=== PATIENT | male | born 1945 | race Caucasian/White ===

== ENCOUNTER → 2016-04-25 | Outpatient (CLI) | payer MEDICARE ==
[~2016-04-25] MED LIST: FISH OIL1000 MG PO; LISINOPRIL 10MG10 MG NG; LORTAB 500 MG-71 TAB PO; METFORMIN500 MG PO; PRAVASTATIN 20M20 MG PO
--- NOTE | 2016-04-26 13:07 | RADIOLOGY REPORT PS360 ---
MRI-L-SPINE W/O, MRI-3D RENDERING/MYELOGRAM ORDERING PHYSICIAN : Bob Corrigan MD PATIENT AGE: 70 years GENDER: Male INDICATION: LUMBAGO WITH SCIATICA, LEFT SIDE Low back pain radiates down posterior aspect of legs. The technologist states a right-sided. Right leg greater pain since fall one month. Supplied history states left-sided pain TECHNIQUE: Sagittal STIR, T1, T2, axial T1 and T2. On 1.5T Siemens wide bore MRI. 3-D MR myelogram image set obtained & performed on MRI workstation. Additional sagittal thin section T2 weighted dataset obtained from this latter acquisition as well (---76 CPT) COMPARISON: Plain films lumbar spine 06/24/2013.. Also. CT abdomen reconstructions of spine 03/26/2015 FINDINGS Transitional vertebra lumbosacral junction does indicated at L6 for this study- partially sacralized L6.. This is important to note prior to any intervention or procedure, in order to verify consistent numbering of vertebral bodies. L1 is also somewhat transitional character with small rudimentary transitional transverse processes I do not have a chest film to verify this is L1 Designated L6/S1. Disc spaces well-maintained. Moderate facet hypertrophy particularly for this level Designated L5/L6..... 4 mm grade 1 listhesis at this level (this anterolisthesis actually at L5/6 level & not at L4/5 level as described on previous plain film lumbar region) This appears to be due to the degenerative facet changes with no pars defect evident. Although disc height is fairly well-maintained there is a diffuse disc bulge. However it is mainly the prominent facet hypertrophy, ligament flavum hypertrophy and listhesis which together with the disc bulge yields a pronounced and fairly severe central canal stenosis. Bilateral foraminal and recess encroachment is evident bilaterally but most pronounced & severe at entry of left foramen. Designated L4/5: Diffuse circumferential disc bulge is slightly more evident rightward.... Prominent bilateral facet hypertrophy. Features combine to yield moderate central canal stenosis. & Moderate bilateral foraminal encroachment At the L3/4. Mild diffuse disc bulge. Mild facet arthropathy, hypertrophy. Mild to moderate foraminal encroachment bilateral. L2/3. Disc intact. L1/2. Borderline disc space narrowing. Disc intact T 12/L1. Disc intact. 3-D MR myelogram image set demonstrates the moderately pronounced spinal stenosis at desiccated L5/L6 and to a slightly lesser L4/5 IMPRESSION: Pronounced Spinal stenosis L 5/6, and less pronounced at L4/5----- 1. Transitional vertebra at lumbosacral junction labeled L6. This is important to note prior to any intervention or procedure to verify consistent numbering of vertebral bodies. ( On also note that this is different vertebral numbering system than was reported on previous plain films from our facility) 2. . Designated L5/L6: Fairly Severe Central Canal Stenosis. Exuberant, prominent facet arthropathy bilaterally along w/ ligament flavum hypertrophy. Grade 1 degenerative listhesis of L5 on L6. Mild diffuse disc bulge. The combination these features yields fairly severe central canal stenosis along with the the prominent bilateral foraminal encroachment- most severe at left foramen. . 3. Designated L4/L5:. Mainly the Exuberant posterior element hypertrophy along with disc bulge yields moderately pronounced central canal stenosis.. (Slight Less pronounced than L5/L6 central stenosis ) . Also Generous bilateral foraminal encroachment slightly more pronounced to the right.. 4.... L3/4.: Mild. Facet hypertrophy with Mild disc bulge to the right-. Overall borderline central canal stenosis.
== END ==
LOC: RAD 08:45
DX: M54.41 Lumbago with sciatica, right side (principal); M54.42 Lumbago with sciatica, left side

== ENCOUNTER 2017-03-16 13:46 | Day surgery (SDC) | payer MEDICARE ==
--- NOTE | 2017-03-16 15:06 | Operative Note ---
Colonoscopy ([facility]) Procedure date: 03/16/17 Date of : 49 Procedure:Colonoscopy Colonoscopy with cold snare polypectomy Indications: Mr. Crawley is a 71-year-old gentleman who is here for initial screening colonoscopy. He reports no abdominal pain, weight loss, change in his bowel habits or rectal bleeding. He reports no family history of colon cancer. Performing Provider: Volodymyr Granda MD Referrring Provider: Humza Sandy M.D. Sedation: MAC sedation Procedure: Prior to the procedure, a history and physical exam was performed, and patient medications and allergies were reviewed. The risks and benefits of the procedure and the sedation options and risks were discussed with the patient. All questions were answered and informed consent was obtained. Patient identification and proposed procedure were verified by the physician and the nurse. The patient was placed in a left lateral decubitus position. Throughout the procedure, the patient's blood pressure, pulse, and oxygen saturations were monitored continuously. Findings: On digital rectal examination there was normal rectal tone. There were no external hemorrhoids. The prostate was 2-3+, smooth, soft, symmetric without nodules. The colonoscope was introduced through the anal canal to the rectum and advanced to the cecum. The ileocecal valve and appendiceal orifice were identified. The scope was advanced a short distance into the ileum which appeared grossly normal. The scope was then withdrawn into the colon. There were 2 colon polyps identified in the ascending 1 and sigmoid 1. These ranged in size from 5-6 mm and were all removed via cold snare polypectomy. There were scattered diverticuli throughout the descending and sigmoid colon (LEFT colon). The rectum itself was normal. Upon retroflexion within the rectum there were grade 1 internal hemorrhoids. Impressions: 1. Diminutive colonic polyps 2 2. Left-sided diverticulosis 3. Grade 1 internal hemorrhoids Recommendations: I will follow up the polyp pathology and recommend repeat colonoscopy again in 5 -10 years based upon the polyp histology. I would encourage fiber supplementation on a long-term daily maintenance basis. Complications: None EBL (ml): 0 at 1506
[2017-03-16 15:39] VITALS: BP 119/70
== END 2017-03-16 15:38 | disposition home or self-care (01) ==
LOC: SDC 13:46
PROVIDERS: Internal Medicine Gastroenterology
PROC: 0DBN8ZX Excision of Sigmoid Colon, Via Natural or Artificial Opening Endoscopic, Diagnostic (ICD-10-PCS; 2017-03-16)
PROC: 0DBK8ZX Excision of Ascending Colon, Via Natural or Artificial Opening Endoscopic, Diagnostic (ICD-10-PCS; principal; 2017-03-16 14:30)
DX: Z12.11 Encounter for screening for malignant neoplasm of colon (principal); D12.2 Benign neoplasm of ascending colon; D12.5 Benign neoplasm of sigmoid colon; Z79.899 Other long term (current) drug therapy; K57.30 Diverticulosis of large intestine without perforation or abscess without bleeding; K64.0 First degree hemorrhoids